=== PATIENT | male | born 1965 | race Caucasian/White ===

== ENCOUNTER 2018-12-14 09:15 | Emergency (ER) | payer OTHER ==
[2018-12-14] MEDS ORDERED: Fluorescein Opthalmic Strip ONE (09:30)
[2018-12-14] MEDS ORDERED: Proparacaine 0.5% Opth 15 ML BOT ONE (09:30)
== END 2018-12-14 10:02 | disposition home or self-care (01) ==
LOC: SCSER 09:15
DX: S05.01XA Injury of conjunctiva and corneal abrasion without foreign body, right eye, initial encounter (principal); E78.00 Pure hypercholesterolemia, unspecified; W22.8XXA Striking against or struck by other objects, initial encounter
CPT/HCPCS: 99283

== ENCOUNTER 2023-03-05 09:42 | Outpatient (CLI) | payer BC ==
[2023-03-05 11:06] LABS: #Eosinphils 0.2 10x3/uL (0.0-0.5); #Monocytes 0.4 10x3/uL (0.0-1.1); #Neutrophils 2.8 10x3/uL (1.5-8.4); %Basophils 0.5 % (0.0-2.0); %Lymphocytes 20.5 % (18.0-47.0); %Monocytes 9.8 % (0.0-10.0); %Neutrophils 64.7 % (40.0-75.0); Hemoglobin 14.7 g/dL (13.5-17.5); Mean Corpuscular HGB CONC 35.2 g/dL (32.0-36.0); Mean Corpuscular Hemoglobin 32.5 pg (27.0-33.0); Mean Corpuscular Volume 92.5 fl (81.2-95.1); Mean Platelet Volume 9.5 fl (7.4-10.4); Platelet Count 154 10x3/uL (150-450); RBC Distribution Width 12.2 % (11.5-14.5); Red Blood Cell (RBC) Count 4.52 10x6/uL (4.32-5.72); White Blood Cell (WBC) Count 4.3 10x3/uL (3.5-10.5)
[2023-03-05 11:10] LABS: Anion Gap 11 mmol/L (10-20); BUN (Urea Nitrogen) 12 mg/dL (8.4-25.7); Calc. Creatinine Clearance 0 mL/min (70-130); Calcium 9.3 mg/dL (7.8-10.44); Carbon Dioxide 24 mmol/L (22-29); Chloride 106 mmol/L (98-107); Estimated GFR 102; Glucose 111 mg/dL (70-105); Potassium 4.2 mmol/L (3.5-5.1); Sodium 137 mmol/L (136-145)
== END 2023-03-05 09:43 | disposition home or self-care (01) ==
LOC: LABBT 09:42
PROVIDERS: ATTEND Surgery
DX: Z01.812 Encounter for preprocedural laboratory examination (principal); K60.3 Anal fistula
CPT/HCPCS: 80048; 85025